=== PATIENT | female | born 1985 | race Caucasian/White ===

== ENCOUNTER 2018-08-05 12:22 | Emergency (ER) | payer OTHER ==
[~2018-08-05] VITALS: Ht 160 cm; Wt 56.7 kg
[~2018-08-05 12:22] MED LIST: ADDERALL10 MG PO; ANAPROX DS550 MG PO; CLEOCIN HCL150 MG PO; FLEXERIL10 MG PO; INDERAL60 MG PO; MOTRIN600 MG PO; MOTRIN800 MG PO; NORCO 325 MG-51 TAB PO; TRAMADOL HCL50 MG PO; VICODIN 5/500 505 MG PO
[2018-08-05] MEDS ORDERED: PREDNISONE50 MG PO (14:04)
== END 2018-08-05 14:26 | disposition home or self-care (01) ==
LOC: ED 12:22
DX: G56.01 Carpal tunnel syndrome, right upper limb (principal); M75.91 Shoulder lesion, unspecified, right shoulder; F17.200 Nicotine dependence, unspecified, uncomplicated